=== PATIENT | female | born 1935 | race Caucasian/White ===

== ENCOUNTER 2021-09-01 13:57 | Inpatient (IN) | payer MEDICARE ==
[~2021-09-01 13:57] MED LIST: Iopamidol 370 76% 100 ML VIAL ONE
[2021-09-01] MEDS ORDERED: Furosemide 40 MG/4 ML VIAL ONE (15:05)
[2021-09-01 15:06] LABS: #Eosinphils 0.4 thou/uL (0.0-0.7); #Lymphocytes 1.4 thou/uL (1.20-3.40); #Monocytes 0.7 thou/uL (0.11-0.59); #Neutrophils 5.2 thou/uL (1.40-6.50); %Basophils 0.3 % (0.0-1.0); %Eosinophils 5.4 % (0.0-10.0); %Lymphocytes 18.3 % (21.0-51.0); %Monocytes 8.5 % (0.0-10.0); %Neutrophils 67.5 % (42.0-75.0); Hemoglobin 11.4 g/dL (12.0-16.0); Mean Corpuscular HGB CONC 30.6 g/dL (32.0-36.0); Mean Corpuscular Hemoglobin 26.1 pg (27.0-31.0); Mean Corpuscular Volume 85.5 fL (78.0-98.0); Mean Platelet Volume 8.3 fL (7.4-10.4); Platelet Count 290 thou/uL (130-400); RBC Distribution Width 16.4 % (11.5-14.5); Red Blood Cell (RBC) Count 4.37 mill/uL (4.20-5.40); White Blood Cell (WBC) Count 7.8 thou/uL (4.8-10.8)
[2021-09-01 15:31] LABS: ALT (SGPT) 13 U/L (8-55); AST (SGOT) 17 U/L (5-34); Albumin 3.7 g/dL (3.4-4.8); Alkaline Phosphatase 117 U/L (40-110); Anion Gap 12 mmol/L (10-20); BUN (Urea Nitrogen) 12 mg/dL (9.8-20.1); Bilirubin, Total 0.6 mg/dL (0.2-1.2); Calc. Creatinine Clearance 0 mL/min (70-130); Calcium 9.1 mg/dL (7.8-10.44); Carbon Dioxide 27 mmol/L (23-31); Chloride 107 mmol/L (98-107); Globulin 2.7 g/dL (2.4-3.5); Glucose 123 mg/dL (83-110); Protein, Total 6.4 g/dL (5.8-8.1); Sodium 142 mmol/L (136-145)
[2021-09-01] MEDS ORDERED: Ondansetron PF 4 MG/2 ML Vial IVP PRN (17:49)
[2021-09-01] MEDS ORDERED: Carvedilol 6.25 MG TAB PO SCH (21:15)
[2021-09-01] MEDS: Atorvastatin Calcium 40 MG TAB PO SCH (22:40)
[2021-09-01] MEDS: Gabapentin 300 MG CAP PO SCH (22:41)
[2021-09-01 22:43] LABS: SARS-CoV-2 NAA Rapid Test DETECTED (NotDetected)
[2021-09-01] MEDS: tiZANidine HCl 4 MG TAB PO SCH (22:43)
[2021-09-01] MEDS: Ipratropium Bromide 0.06% Nasal Inhaler 15ml EA NARE SCH (22:46)
[2021-09-02 05:57] LABS: #Eosinphils 0.4 thou/uL (0.0-0.7); #Lymphocytes 1.5 thou/uL (1.20-3.40); #Neutrophils 5.6 thou/uL (1.40-6.50); %Basophils 0.4 % (0.0-1.0); %Eosinophils 5.2 % (0.0-10.0); %Lymphocytes 17.8 % (21.0-51.0); %Monocytes 11.7 % (0.0-10.0); %Neutrophils 64.8 % (42.0-75.0); Mean Corpuscular HGB CONC 31.1 g/dL (32.0-36.0); Mean Corpuscular Hemoglobin 26.4 pg (27.0-31.0); Mean Corpuscular Volume 84.7 fL (78.0-98.0); Mean Platelet Volume 8.2 fL (7.4-10.4); Platelet Count 299 thou/uL (130-400); RBC Distribution Width 16.4 % (11.5-14.5); Red Blood Cell (RBC) Count 4.56 mill/uL (4.20-5.40); White Blood Cell (WBC) Count 8.6 thou/uL (4.8-10.8)
[2021-09-02 06:18] LABS: Anion Gap 13 mmol/L (10-20); BUN (Urea Nitrogen) 15 mg/dL (9.8-20.1); Calc. Creatinine Clearance 0 mL/min (70-130); Calcium 9.3 mg/dL (7.8-10.44); Carbon Dioxide 29 mmol/L (23-31); Chloride 101 mmol/L (98-107); Glucose 115 mg/dL (83-110); Potassium 3.4 mmol/L (3.5-5.1); Sodium 140 mmol/L (136-145)
[2021-09-02] MEDS ORDERED: Potassium Chloride 20 MEQ TAB PO SCH (07:45)
[2021-09-02] MEDS ORDERED: Electrolyte Replacement Protocol 1 EACH FS PRN (07:45)
[2021-09-02] MEDS ORDERED: Carvedilol 6.25 MG TAB PO SCH (08:00)
[2021-09-02] MEDS ORDERED: Enoxaparin Sodium 30 MG/0.3 ML SYRINGE SC SCH (09:00)
[2021-09-02] MEDS ORDERED: Potassium Chloride 20 MEQ TAB ONE (09:00)
[2021-09-02] MEDS ORDERED: Furosemide 40 MG/4 ML VIAL SLOW IVP SCH (09:00)
[2021-09-02] MEDS: tiZANidine HCl 4 MG TAB PO SCH ×2 (09:01→21:19)
[2021-09-02] MEDS: Gabapentin 300 MG CAP PO SCH ×3 (09:01→20:57)
[2021-09-02] MEDS ORDERED: Aspirin Chewable 81 MG TAB ONE (09:03)
[2021-09-02] MEDS ORDERED: Furosemide 40 MG/4 ML VIAL ONE (09:03)
[2021-09-02] MEDS: Aspirin 81 mg Enteric Coated Tablet PO SCH (09:04)
[2021-09-02] MEDS ORDERED: traMADol HCl 50 MG TAB ONE (09:43)
[2021-09-02] MEDS: traMADol HCl 50 MG TAB PO PRN (09:44)
[2021-09-02] MEDS: Ipratropium Bromide 0.06% Nasal Inhaler 15ml EA NARE SCH (17:50)
[2021-09-02 17:56] VITALS: BMI 27.0
[2021-09-02] MEDS ORDERED: Ipratropium/Albuterol Sulfate 4 GM AER IH SCH (19:00)
[2021-09-02] MEDS: Acetaminophen 325 MG TAB PO PRN (20:56)
[2021-09-02] MEDS: Atorvastatin Calcium 40 MG TAB PO SCH (20:56)
[2021-09-02] MEDS: Albuterol 200 PUFF (6.7GM INHALER) INH SCH (20:59)
[2021-09-02] MEDS: Benzonatate 100 MG CAP PO PRN (21:19)
[2021-09-03] MEDS: Albuterol 200 PUFF (6.7GM INHALER) INH SCH ×4 (03:44→18:29)
[2021-09-03] MEDS: Ipratropium Bromide 0.06% Nasal Inhaler 15ml EA NARE SCH ×3 (03:45→21:43)
[2021-09-03 04:04] LABS: Anion Gap 10 mmol/L (10-20); BUN (Urea Nitrogen) 16 mg/dL (9.8-20.1); Calc. Creatinine Clearance 55 mL/min (70-130); Calcium 8.3 mg/dL (7.8-10.44); Carbon Dioxide 29 mmol/L (23-31); Chloride 104 mmol/L (98-107); Glucose 103 mg/dL (83-110); Potassium 3.7 mmol/L (3.5-5.1); Sodium 139 mmol/L (136-145)
[2021-09-03] MEDS ORDERED: Furosemide 40 MG TAB PO SCH (07:30)
[2021-09-03] MEDS: Enoxaparin Sodium 30 MG/0.3 ML SYRINGE SC SCH ×2 (10:11→21:42)
[2021-09-03] MEDS: Gabapentin 300 MG CAP PO SCH ×3 (10:12→21:41)
[2021-09-03] MEDS: Benzonatate 100 MG CAP PO PRN (10:12)
[2021-09-03] MEDS: tiZANidine HCl 4 MG TAB PO SCH ×2 (10:13→23:22)
[2021-09-03] MEDS: Aspirin 81 mg Enteric Coated Tablet PO SCH (10:13)
[2021-09-03] MEDS: Acetaminophen 325 MG TAB PO PRN (10:29)
[2021-09-03] MEDS: traMADol HCl 50 MG TAB PO PRN (10:30)
[2021-09-03] MEDS: Atorvastatin Calcium 40 MG TAB PO SCH (21:42)
[2021-09-04] MEDS: Albuterol 200 PUFF (6.7GM INHALER) INH SCH ×4 (01:51→20:17)
[2021-09-04 03:58] LABS: Hemoglobin 11.8 g/dL (12.0-16.0); Mean Corpuscular HGB CONC 31.2 g/dL (32.0-36.0); Mean Corpuscular Hemoglobin 26.8 pg (27.0-31.0); Mean Platelet Volume 8.6 fL (7.4-10.4); Platelet Count 261 thou/uL (130-400); RBC Distribution Width 16.4 % (11.5-14.5); Red Blood Cell (RBC) Count 4.41 mill/uL (4.20-5.40); White Blood Cell (WBC) Count 7.5 thou/uL (4.8-10.8)
[2021-09-04 04:16] LABS: Anion Gap 11 mmol/L (10-20); BUN (Urea Nitrogen) 15 mg/dL (9.8-20.1); Calc. Creatinine Clearance 0 mL/min (70-130); Calcium 8.8 mg/dL (7.8-10.44); Carbon Dioxide 28 mmol/L (23-31); Chloride 104 mmol/L (98-107); Glucose 81 mg/dL (83-110); Potassium 3.9 mmol/L (3.5-5.1); Sodium 139 mmol/L (136-145)
[2021-09-04] MEDS: Gabapentin 300 MG CAP PO SCH ×3 (08:17→20:15)
[2021-09-04] MEDS: Ipratropium Bromide 0.06% Nasal Inhaler 15ml EA NARE SCH ×2 (08:18→20:17)
[2021-09-04] MEDS: Enoxaparin Sodium 30 MG/0.3 ML SYRINGE SC SCH ×2 (08:18→20:16)
[2021-09-04] MEDS: Aspirin 81 mg Enteric Coated Tablet PO SCH (08:18)
[2021-09-04] MEDS: tiZANidine HCl 4 MG TAB PO SCH ×2 (08:18→20:14)
[2021-09-04 13:09] VITALS: BP 123/53
[2021-09-04] MEDS: traMADol HCl 50 MG TAB PO PRN (14:10)
[2021-09-04] MEDS ORDERED: Dexamethasone 4 mg/ml Vial SLOW IVP SCH (19:15)
[2021-09-04] MEDS: Atorvastatin Calcium 40 MG TAB PO SCH (20:14)
[2021-09-05] MEDS: Albuterol 200 PUFF (6.7GM INHALER) INH SCH ×2 (01:11→07:05)
[2021-09-05] MEDS: Gabapentin 300 MG CAP PO SCH (07:25)
[2021-09-05] MEDS: tiZANidine HCl 4 MG TAB PO SCH (07:26)
[2021-09-05] MEDS: Aspirin 81 mg Enteric Coated Tablet PO SCH (07:26)
[2021-09-05] MEDS: Enoxaparin Sodium 30 MG/0.3 ML SYRINGE SC SCH (07:26)
[2021-09-05] MEDS: Ipratropium Bromide 0.06% Nasal Inhaler 15ml EA NARE SCH (07:26)
[2021-09-05 07:50] VITALS: TEMP 98.5
[2021-09-05] MEDS ORDERED: Dexamethasone 4 mg/ml Vial SLOW IVP SCH (09:00)
== END 2021-09-05 11:38 | disposition home or self-care (01) | DRG 177 ==
LOC: ERS 13:57 → ERHOLD 16:23 → IMCU/EMU 09-02 16:45
PROVIDERS: ADMIT Internal Medicine; ATTEND Internal Medicine
PROC: 8E0ZXY6 Isolation (ICD-10-PCS; principal; 2021-09-01)
DX: U07.1 COVID-19 (principal); J12.82 Pneumonia due to coronavirus disease 2019; J96.01 Acute respiratory failure with hypoxia; I50.33 Acute on chronic diastolic (congestive) heart failure; J44.0 Chronic obstructive pulmonary disease with (acute) lower respiratory infection; I25.10 Atherosclerotic heart disease of native coronary artery without angina pectoris; E78.5 Hyperlipidemia, unspecified; K21.9 Gastro-esophageal reflux disease without esophagitis; I48.0 Paroxysmal atrial fibrillation; I11.0 Hypertensive heart disease with heart failure; Z96.641 Presence of right artificial hip joint; G62.9 Polyneuropathy, unspecified; Z90.710 Acquired absence of both cervix and uterus; Z90.89 Acquired absence of other organs; Z95.1 Presence of aortocoronary bypass graft
CPT/HCPCS: 36415; 71045; 71275; 80048; 80053; 83880; 84484; 85025; 85027; 85379; 93005; 93306; 96374; J1100; J1650; J1940; J7620; Q9967; U0002

== ENCOUNTER 2022-03-23 11:33 | Outpatient (CLI) | payer MEDICARE ==
[2022-03-23 12:32] LABS: Hemoglobin 12.8 g/dL (12.0-15.5); Mean Corpuscular HGB CONC 31.1 g/dL (32.0-36.0); Mean Corpuscular Hemoglobin 26.1 pg (27.0-33.0); Mean Corpuscular Volume 84.1 fl (81.6-98.3); Mean Platelet Volume 12.7 fl (7.4-10.4); Platelet Count 286 10x3/uL (150-450); RBC Distribution Width 17.9 % (11.5-14.5); White Blood Cell (WBC) Count 9.4 10x3/uL (3.5-10.5)
[2022-03-23 12:43] LABS: PTT 25.9 sec (22.0-33.0); Prothrombin Time 11.3 sec (9.5-12.1)
[2022-03-23 12:50] LABS: Anion Gap 16 mmol/L (10-20); BUN (Urea Nitrogen) 24 mg/dL (9.8-20.1); Calc. Creatinine Clearance 0 mL/min (70-130); Calcium 9.6 mg/dL (7.8-10.44); Carbon Dioxide 29 mmol/L (23-31); Chloride 102 mmol/L (98-107); Estimated GFR 37; Glucose 124 mg/dL (83-110); Potassium 3.9 mmol/L (3.5-5.1); Sodium 143 mmol/L (136-145)
== END 2022-03-23 11:34 | disposition home or self-care (01) ==
LOC: LABBT 11:33
PROVIDERS: ATTEND Internal Medicine Cardiovascular Disease
DX: Z01.812 Encounter for preprocedural laboratory examination (principal); Z20.822 Contact with and (suspected) exposure to COVID-19
CPT/HCPCS: 80048; 85027; 85610; 85730; 87811

== ENCOUNTER 2022-03-28 08:51 | Observation (INO) | payer MEDICARE ==
[2022-03-28] MEDS ORDERED: Lidocaine 1% PF 5 ML VIAL ONE (09:15)
[2022-03-28] MEDS ORDERED: Gentamicin 80 MG/50 ML BAG ONE (09:15)
[2022-03-28] MEDS ORDERED: Clindamycin/D5W 900 mg/50 ml Premix Bag ONE (09:15)
[2022-03-28] MEDS ORDERED: DOPamine 400 MG/D5W 250 ML 250 ML ONE (09:32)
[2022-03-28] MEDS ORDERED: Famotidine/PF 20 mg/2ml Vial ONE (11:15)
[2022-03-28] MEDS ORDERED: SUGAMMADEX SODIUM 200 MG/2 ML VIAL ONE (11:15)
[2022-03-28] MEDS ORDERED: fentaNYL Citrate/PF 100 MCG/2 ML SYRINGE ONE (11:15)
[2022-03-28] MEDS ORDERED: Propofol 500 MG/50 ML VIAL ONE (11:15)
[2022-03-28] MEDS ORDERED: Iopamidol 370 76% 50 ML VIAL FS ONE (11:21)
[2022-03-28] MEDS ORDERED: Lidocaine 1% MPF 2 ML VIAL ONE (11:39)
[2022-03-28] MEDS ORDERED: Ondansetron PF 4 MG/2 ML Vial ONE (11:39)
[2022-03-28] MEDS ORDERED: PROPOFOL 200 MG/20 ML VIAL ONE (11:39)
[2022-03-28] MEDS ORDERED: Phenylephrine 10 MG/ML VIAL ONE (11:39)
[2022-03-28] MEDS ORDERED: ePHEDrine 50 MG/ML VIAL ONE (11:39)
[2022-03-28] MEDS ORDERED: Ketorolac Tromethamine 30 MG/ML VIAL ONE (11:39)
[2022-03-28] MEDS ORDERED: Heparin 10,000 UNITS/ 10 ML VIAL ONE (11:42)
[2022-03-28] MEDS ORDERED: PROPOFOL 40 ML ONE (13:54)
[2022-03-28 15:50] VITALS: BMI 27.8
[2022-03-28] MEDS ORDERED: Benzonatate 100 MG CAP PO PRN (17:05)
[2022-03-28] MEDS ORDERED: Furosemide 40 MG TAB PO PRN (17:07)
[2022-03-28] MEDS ORDERED: Gabapentin 300 MG CAP PO PRN (17:09)
[2022-03-28] MEDS ORDERED: tiZANidine HCl 4 MG TAB PO PRN (17:12)
[2022-03-28] MEDS ORDERED: TRAMADOL PO PRN (17:15)
[2022-03-28] MEDS ORDERED: Vancomycin 1 GM in Premix Bag 1 BAG IVPB SCH (17:15)
[2022-03-28] MEDS: Vit A,C & E/Lutein/Minerals Tablet PO SCH (19:54)
[2022-03-28] MEDS: Carvedilol 6.25 MG TAB PO SCH (19:55)
[2022-03-28] MEDS: Doxycycline 100 MG CAP PO SCH (19:56)
[2022-03-28] MEDS: traMADol HCl 50 MG TAB PO PRN (19:57)
[2022-03-28] MEDS ORDERED: Atorvastatin Calcium 10 MG TAB PO SCH (21:00)
[2022-03-29] MEDS: traMADol HCl 50 MG TAB PO PRN ×2 (04:18→10:27)
[2022-03-29 04:49] LABS: #Eosinphils 0.4 thou/uL (0.0-0.7); #Lymphocytes 1.5 thou/uL (1.20-3.40); #Monocytes 0.8 thou/uL (0.11-0.59); #Neutrophils 6.7 thou/uL (1.40-6.50); %Basophils 0.4 % (0.0-1.0); %Eosinophils 4.3 % (0.0-10.0); %Lymphocytes 15.6 % (21.0-51.0); %Monocytes 8.7 % (0.0-10.0); Hemoglobin 10.6 g/dL (12.0-16.0); Mean Corpuscular HGB CONC 31.1 g/dL (32.0-36.0); Mean Corpuscular Volume 86.6 fL (78.0-98.0); Mean Platelet Volume 10.1 fL (7.4-10.4); Platelet Count 165 thou/uL (130-400); Red Blood Cell (RBC) Count 3.93 mill/uL (4.20-5.40); White Blood Cell (WBC) Count 9.5 thou/uL (4.8-10.8)
[2022-03-29 05:03] LABS: Anion Gap 13 mmol/L (10-20); BUN (Urea Nitrogen) 24 mg/dL (9.8-20.1); Calc. Creatinine Clearance 48 mL/min (70-130); Calcium 8.4 mg/dL (7.8-10.44); Carbon Dioxide 25 mmol/L (23-31); Chloride 105 mmol/L (98-107); Estimated GFR 55; Glucose 89 mg/dL (83-110); Potassium 3.9 mmol/L (3.5-5.1); Sodium 139 mmol/L (136-145)
[2022-03-29] MEDS: Ipratropium Bromide 0.03% Nasal Inhaler 30 ml Bottle EA NARE SCH ×2 (06:14→09:15)
[2022-03-29] MEDS: Doxycycline 100 MG CAP PO SCH (08:07)
[2022-03-29] MEDS: Vit A,C & E/Lutein/Minerals Tablet PO SCH (08:07)
[2022-03-29] MEDS: Carvedilol 6.25 MG TAB PO SCH (08:07)
[2022-03-29] MEDS ORDERED: Aspirin 81 mg Enteric Coated Tablet PO SCH (09:00)
[2022-03-29] MEDS ORDERED: Loratadine 10 MG TAB PO SCH (09:00)
[2022-03-29 12:20] VITALS: BP 134/61; TEMP 97.3
== END 2022-03-29 13:05 | disposition home or self-care (01) ==
LOC: SDC 08:51 → 2SW 14:36
PROVIDERS: ADMIT Internal Medicine Cardiovascular Disease; ATTEND Internal Medicine Cardiovascular Disease
PROC: 0JH607Z Insertion of Cardiac Resynchronization Pacemaker Pulse Generator into Chest Subcutaneous Tissue and Fascia, Open Approach (ICD-10-PCS; principal; 2022-03-28)
PROC: 02HL3JZ Insertion of Pacemaker Lead into Left Ventricle, Percutaneous Approach (ICD-10-PCS; 2022-03-28)
PROC: 02H73JZ Insertion of Pacemaker Lead into Left Atrium, Percutaneous Approach (ICD-10-PCS; 2022-03-28)
PROC: 02HL3JZ Insertion of Pacemaker Lead into Left Ventricle, Percutaneous Approach (ICD-10-PCS; 2022-03-28)
PROC: 02583ZZ Destruction of Conduction Mechanism, Percutaneous Approach (ICD-10-PCS; 2022-03-28)
PROC: 02K83ZZ Map Conduction Mechanism, Percutaneous Approach (ICD-10-PCS; 2022-03-28)
DX: I48.19 Other persistent atrial fibrillation (principal); I11.0 Hypertensive heart disease with heart failure; I50.22 Chronic systolic (congestive) heart failure; I49.5 Sick sinus syndrome; I25.5 Ischemic cardiomyopathy; I44.2 Atrioventricular block, complete; I25.10 Atherosclerotic heart disease of native coronary artery without angina pectoris; I34.0 Nonrheumatic mitral (valve) insufficiency; J44.9 Chronic obstructive pulmonary disease, unspecified; Z87.891 Personal history of nicotine dependence; Z79.82 Long term (current) use of aspirin; Z79.899 Other long term (current) drug therapy; Z88.1 Allergy status to other antibiotic agents; Z88.5 Allergy status to narcotic agent; Z88.8 Allergy status to other drugs, medicaments and biological substances; Z95.1 Presence of aortocoronary bypass graft
CPT/HCPCS: 33208; 33225; 71045; 80048; 85025; 93005 ×2; 93623; 93650; 93798; C1760; C1769; C1882; C1898 ×2; C1900; 36415; 93010; J1265; J1580; J1644; J1885; J2370; J2405; J2704; J3370; J3490; Q9967; S0028

== ENCOUNTER 2022-12-11 16:57 | Emergency (ER) | payer MEDICARE ==
[2022-12-11 17:40] LABS: #Basophils 0.1 thou/uL (0.0-0.2); #Eosinphils 0.7 thou/uL (0.0-0.7); #Lymphocytes 1.9 thou/uL (1.20-3.40); #Monocytes 0.7 thou/uL (0.11-0.59); #Neutrophils 6.5 thou/uL (1.40-6.50); %Basophils 0.7 % (0.0-1.0); %Eosinophils 7.5 % (0.0-10.0); %Lymphocytes 18.9 % (21.0-51.0); %Monocytes 7.2 % (0.0-10.0); %Neutrophils 65.7 % (42.0-75.0); Hemoglobin 12.6 g/dL (12.0-16.0); Mean Corpuscular HGB CONC 32.2 g/dL (32.0-36.0); Mean Corpuscular Hemoglobin 28.5 pg (27.0-31.0); Mean Corpuscular Volume 88.6 fl (78.0-98.0); Mean Platelet Volume 9.4 fL (7.4-10.4); Platelet Count 227 10x3/uL (130-400); RBC Distribution Width 14.4 % (11.5-14.5); Red Blood Cell (RBC) Count 4.41 mill/uL (4.20-5.40); White Blood Cell (WBC) Count 9.9 10x3/uL (4.8-10.8)
[2022-12-11] MEDS ORDERED: Magnesium 2 GM/50 ML BAG (IN WATER) ONE (17:50)
[2022-12-11] MEDS ORDERED: methylPREDNISolone Sod Succ/PF 125 MG/2 ML VIAL ONE (17:50)
[2022-12-11] MEDS ORDERED: Azithromycin 500 MG VIAL ONE (17:50)
[2022-12-11 18:02] LABS: ALT (SGPT) 12 U/L (8-55); AST (SGOT) 19 U/L (5-34); Albumin 3.8 g/dL (3.4-4.8); Alkaline Phosphatase 136 U/L (40-110); Anion Gap 16 mmol/L (10-20); BUN (Urea Nitrogen) 16 mg/dL (9.8-20.1); Bilirubin, Total 0.5 mg/dL (0.2-1.2); CK (CPK) 32 U/L (29-168); Calc. Creatinine Clearance 0 mL/min (70-130); Calcium 9.3 mg/dL (7.8-10.44); Carbon Dioxide 27 mmol/L (23-31); Chloride 101 mmol/L (98-107); Estimated GFR 73; Globulin 3.1 g/dL (2.4-3.5); Glucose 116 mg/dL (83-110); Potassium 3.3 mmol/L (3.5-5.1); Protein, Total 6.9 g/dL (5.8-8.1); Sodium 141 mmol/L (136-145)
[2022-12-11] MEDS ORDERED: Ipratropium/Albuterol 3 ML NEB ONE (19:26)
[2022-12-11 20:22] LABS: SARS-CoV-2 NAA Rapid Test Not Detected (NotDetected)
== END 2022-12-11 21:57 | disposition home or self-care (01) ==
LOC: ERS 16:57
DX: J20.9 Acute bronchitis, unspecified (principal); I11.0 Hypertensive heart disease with heart failure; I50.9 Heart failure, unspecified; E78.5 Hyperlipidemia, unspecified; I25.10 Atherosclerotic heart disease of native coronary artery without angina pectoris; Z79.82 Long term (current) use of aspirin; Z20.822 Contact with and (suspected) exposure to COVID-19; Z79.899 Other long term (current) drug therapy
CPT/HCPCS: 0240U; 71045; 80053; 82550; 83605; 83880; 84484; 85025; 93005; 94640 ×2; 94760; J0456; 36415; 96365; 96375; J2930; J3475; J7620